=== PATIENT | female | born 1985 | race Caucasian/White ===

== ENCOUNTER 2016-04-09 21:15 | Emergency (ER) | payer OTHER ==
[~2016-04-09 21:15] MED LIST: CELEXA20 MG PO; COLACE 100MG C100 MG PO; COLACE100 MG PO; IBUPROFEN600 MG PO; IBUPROFEN800 MG PO; IPRAT-ALBUT 0.5-3 ML INH; LEVAQUIN500 MG PO; NEURONTIN800 MG PO; NORCO 5-325 TA1 EACH PO; PERCOCET 5-3251 EACH PO; PHENERGAN 12.12.5 M1 PO; PHENERGAN 25 MG25 M1 PO; RESTORIL15 MG PO; TRAMADOL HCL50 MG PO; VENTOLIN HFA 66.7 GM INH
== END 2016-04-09 23:54 | disposition home or self-care (01) ==
LOC: ER1 21:15
DX: Z53.21 Procedure and treatment not carried out due to patient leaving prior to being seen by health care provider (principal)

== ENCOUNTER → 2016-04-29 | Outpatient (CLI) | payer OTHER | LOC: EMI 10:53 | DX: G40.909 Epilepsy, unspecified, not intractable, without status epilepticus (principal); R90.89 Other abnormal findings on diagnostic imaging of central nervous system; J32.4 Chronic pansinusitis | CPT/HCPCS: 70553; A9577; J7050 ==

== ENCOUNTER 2016-05-16 21:29 | Emergency (ER) | payer OTHER ==
[2016-05-16 23:44] LABS: HEMOGLOBIN 12.5 gm/dl (12.3-15.3); RED BLOOD COUNT 4.2 M/UL (4.00-5.10); WHITE BLOOD COUNT 9.8 K/UL (4.5-11.0)
[2016-05-17 00:07] LABS: BUN/CREATININE RATIO 10 (0-10)
== END 2016-05-17 02:58 ==
LOC: ER1 21:29
PROVIDERS: Emergency Medicine
DX: G40.909 Epilepsy, unspecified, not intractable, without status epilepticus (principal); J45.909 Unspecified asthma, uncomplicated; F17.210 Nicotine dependence, cigarettes, uncomplicated; Z90.710 Acquired absence of both cervix and uterus
CPT/HCPCS: 36415; 80053; 82550; 82962; 83605; 85025; 85610; 85730; 87040; 93005; 96374; 96375; 99285; J1953; J2060; J7030

== ENCOUNTER 2020-03-19 19:54 | Emergency (ER) | payer OTHER ==
[~2020-03-19 19:54] MED LIST changes: +BENTYL 10MG CAP10 MG PO; +GABAPENTIN300 MG PO; +KLONOPIN1 MG PO; +MELATONIN5 MG PO; +Magic Mouth Wash PO; +POTASSIUM CHLO20 ME1 PO; +PREDNISONE 50 M50 MG PO; +TESSALON PERLE100 MG PO; +ZITHROMAX250 MG PO; +ZOFRAN4 MG PO
== END 2020-03-19 21:00 | disposition left against medical advice (07) ==
LOC: ER1 19:54
DX: M25.571 Pain in right ankle and joints of right foot (principal); Z53.21 Procedure and treatment not carried out due to patient leaving prior to being seen by health care provider

== ENCOUNTER → 2020-04-29 | Outpatient (CLI) | payer OTHER | LOC: KOH-I 09:51 | DX: S82.871D Displaced pilon fracture of right tibia, subsequent encounter for closed fracture with routine healing (principal); X58.XXXD Exposure to other specified factors, subsequent encounter; M79.89 Other specified soft tissue disorders | CPT/HCPCS: 73610 ==

== ENCOUNTER → 2020-05-16 | Outpatient (CLI) | payer OTHER | LOC: KOH-I 05-13 15:15 | DX: S83.421A Sprain of lateral collateral ligament of right knee, initial encounter (principal); Z86.69 Personal history of other diseases of the nervous system and sense organs; S96.811A Strain of other specified muscles and tendons at ankle and foot level, right foot, initial encounter; R60.9 Edema, unspecified; M77.51 Other enthesopathy of right foot and ankle | CPT/HCPCS: 73721 ==

== ENCOUNTER → 2020-07-23 | Outpatient (CLI) | payer OTHER | LOC: KOH-I 11:14 | DX: M25.572 Pain in left ankle and joints of left foot (principal); M25.571 Pain in right ankle and joints of right foot | CPT/HCPCS: 73610 ==